=== PATIENT | female | born 1965 | race Caucasian/White ===

== ENCOUNTER 2017-11-18 15:36 | Emergency (ER) | payer SELFPAY ==
[2017-11-18 15:43] VITALS: BMI 27.4
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
[2017-11-18] MEDS ORDERED: ACETAMINOPHEN 1000 MG/100 ML VIAL (NON FORMULARY) IVPB ONE (17:07)
[2017-11-18] MEDS ORDERED: ACETAMINOPHEN INJECTION 100 ML IVPB ONE (17:25)
[2017-11-18] MEDS ORDERED: IBUPROFEN 600 MG TABLET (FP) PO ONE ×2 (17:38→17:42)
[2017-11-18] MEDS ORDERED: ACETAMINOPHEN 325 MG TABLET (FP) PO ONE (17:38)
[2017-11-18] MEDS ORDERED: ACETAMINOPHEN 325 MG TABLET (FP) ONE (17:41)
[2017-11-18 22:28] VITALS: BP 127/68; PULSE 89; TEMP 98
[2017-11-19 03:23] LABS: COCAINE, UR NEGATIVE ng/ml (CUTOFF=300); METHADONE, UR NEGATIVE ng/ml (CUTOFF=300); OPIATES, URI NEGATIVE ng/ml (CUTOFF=300); PHENCYCLIDINE,URINE NEGATIVE ng/ml (CUTOFF=25); URINE AMPHETAMINES NEGATIVE ng/ml (CUTOFF=500); URINE BARBITURATES NEGATIVE ng/ml (CUTOFF=200); URINE BENZODIAZEPINES NEGATIVE ng/ml (CUTOFF=200)
[2017-11-20 06:08] LABS: BENZODIAZEPINES, UR Negative ng/mL (Cutoff=200); CANNABINOIDS, URINE Negative ng/mL (Cutoff=20); METHADONE, URINE Negative ng/mL (Cutoff=300); OPIATES, UR Negative ng/mL (Cutoff=300); PHENCYCLIDINE, URINE Negative ng/mL (Cutoff=25)
== END 2017-11-18 22:10 ==
LOC: JER 15:36
DX: M79.604 Pain in right leg (principal); W18.39XA Other fall on same level, initial encounter; Y93.89 Activity, other specified; Y92.129 Unspecified place in nursing home as the place of occurrence of the external cause; F31.9 Bipolar disorder, unspecified; F10.11 Alcohol abuse, in remission
CPT/HCPCS: 73590-TC-RT-FY; 80307; 84703; 99284-25

== ENCOUNTER 2017-11-25 11:59 | Emergency (ER) | payer SELFPAY ==
[2017-11-25 12:50] VITALS: BP 101/64; PULSE 79; TEMP 98.4; BMI 27.1
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
== END 2017-11-25 15:28 | disposition home or self-care (01) ==
LOC: JER 11:59
DX: S82.891D Other fracture of right lower leg, subsequent encounter for closed fracture with routine healing (principal); X58.XXXA Exposure to other specified factors, initial encounter; Y93.89 Activity, other specified; Y92.9 Unspecified place or not applicable; F10.11 Alcohol abuse, in remission; F41.9 Anxiety disorder, unspecified; G89.29 Other chronic pain
CPT/HCPCS: 99282-25